=== PATIENT | female | born 1965 | race Caucasian/White ===

== ENCOUNTER 2020-06-14 23:42 | Inpatient (IN) | payer OTHER, SELFPAY ==
[~2020-06-14 23:42] MED LIST: Iopamidol-370 76% 500 ML 1 ML ONE
[2020-06-15] MEDS ORDERED: Calcium Carbonate 500 MG ChewTAB PO PRN (01:32)
[2020-06-15] MEDS ORDERED: Ondansetron PF 4 MG/2 ML Vial IVP PRN (01:32)
[2020-06-15] MEDS ORDERED: HYDROcodone/Acetaminophen 5/325 mg Tablet PO PRN (01:32)
[2020-06-15] MEDS ORDERED: Acetaminophen 650 MG Suppository PR PRN (01:32)
[2020-06-15] MEDS ORDERED: Ondansetron ODT 4 MG TAB PO PRN (01:32)
--- NOTE | 2020-06-15 01:42 | PDOC.HHP ---
Hospitalist HPI - History of Present Illness dyspnea History of Present Illness: Case of an 55y/o female with pmhx of morbid obesity and hypertension who comes to hospital due to dyspnea. Patient comes transfer from the [place] [facility], COVID-19 diagnosis was made around 8 days ago when she started with considerable cough. patient also complains of fever body aches, chills, sore throat, and diarrhea states her shortness of breath started about 4 days ago and got worse today. Patient denies any chest pain, abdominal pain, nausea or vomiting. at arrival patient was in respiratory distress with increase RR and saturation in the low 90s. Hospitalist ROS - Review of Systems All other systems reviewed; all pertinent +/- noted in HPI/Subj Hospitalist History - Past Medical History Source: patient - Past Surgical History Past Surgical History: reports: Cholecystectomy, Hysterectomy - Family History Family History: reports: hypertension - Social History Smoking Status: Former smoker Alcohol: reports: None Drugs: reports: none Living Situation: With Family - Exam General Appearance: awake alert Eye: PERRL, anicteric sclera ENT: normocephalic atraumatic, no oropharyngeal lesions Neck: supple, symmetric, no JVD Heart: RRR, no murmur, no gallops Respiratory: no wheezes, no rales, no ronchi, tachypneic Gastrointestinal: soft, non-tender, non-distended Extremities: no cyanosis, no clubbing Skin: normal turgor, no lesions Neurological: cranial nerve grossly intact, normal sensation to touch Musculoskeletal: normal tone, normal strength Psychiatric: normal affect, normal behavior, A&O x 3 Hospitalist Results - Labs Result Diagrams: 06/15/20 01:57 06/15/20 01:54 Hospitalist H&P A/P - Problem (1) COVID-19 Code(s): U07.1 - COVID-19 Status: Acute (2) Hypoxia Code(s): R09.02 - HYPOXEMIA Status: Acute (3) Morbid obesity Code(s): E66.01 - MORBID (SEVERE) OBESITY DUE TO EXCESS CALORIES Status: Acute (4) HTN (hypertension) Code(s): I10 - ESSENTIAL (PRIMARY) HYPERTENSION Status: Acute - Plan Plan: covid 19 / hypoxia - positive test - on rocephin + azithromycin prophylactically - dexamethazone 6mg iv daily x 10d - 02 supplementation goal 92% above - normal LA - ivfs htn - continue home meds
[2020-06-15] MEDS ORDERED: Azithromycin 500 MG in Sodium Chloride 0.9% 250 ML 250 ML IVPB SCH ×2 (02:00→05:00)
[2020-06-15 02:09] LABS: Troponin I 0.015 ng/mL (< 0.028)
[2020-06-15 02:13] LABS: Hemoglobin 13.9 g/dL (12.0-16.0); Mean Corpuscular HGB CONC 33.5 g/dL (32.0-36.0); Mean Corpuscular Hemoglobin 29.5 pg (27.0-31.0); Mean Corpuscular Volume 88.3 fL (78.0-98.0); Mean Platelet Volume 7.9 fL (7.4-10.4); Platelet Count 202 thou/uL (130-400); RBC Distribution Width 13.5 % (11.5-14.5); White Blood Cell (WBC) Count 4.4 thou/uL (4.8-10.8)
[2020-06-15 02:27] LABS: ALT (SGPT) 103 U/L (8-55); AST (SGOT) 158 U/L (5-34); Albumin 3.7 g/dL (3.5-5.0); Alkaline Phosphatase 174 U/L (40-110); Anion Gap 13 mmol/L (10-20); BUN (Urea Nitrogen) 12 mg/dL (9.8-20.1); Bilirubin, Total 0.5 mg/dL (0.2-1.2); Calc. Creatinine Clearance 0 mL/min (70-130); Calcium 7.6 mg/dL (7.8-10.44); Carbon Dioxide 23 mmol/L (22-29); Chloride 100 mmol/L (98-107); Estimated GFR-MDRD 49; Globulin 3.1 g/dL (2.4-3.5); Glucose 111 mg/dL (70-105); Potassium 4.2 mmol/L (3.5-5.1); Protein, Total 6.8 g/dL (6.0-8.3); Sodium 132 mmol/L (136-145)
[2020-06-15 02:31] LABS: MDiff Complete? YES
[2020-06-15 02:32] LABS: Band 22 % (5-11); Lymphocytes 24 % (21-51); Monocytes 4 % (0-10); Neutrophil 50 % (42-75); Platelet Morphology Comment Appears Adequate; RBC Morphology Normal
[2020-06-15] MEDS ORDERED: cefTRIAXone\\ROCEPHIN 1 GM in Sodium Chloride 0.9% 100 ML IVPB SCH (03:00)
[2020-06-15 04:53] VITALS: BMI 56.9
[2020-06-15] MEDS: Sodium Chloride 0.9% 1,000 ML IV SCH ×2 (05:00→22:32)
[2020-06-15 05:48] LABS: Troponin I 0.024 ng/mL (< 0.028)
--- NOTE | 2020-06-15 06:54 | CT ---
PRELIMINARY REPORT/[facility]/EMERGENCY AFTER HOURS PROCEDURE: EXAM: CTA Chest with Intravenous Contrast CLINICAL HISTORY: 55-year-old female patient was a transfer from the [facility] ER for shortness of breath, recent COVID-19 diagnosis. The patient reports she has, but body aches, chills, sore throat, diarrhea, for the last 8 days, reports her shortness of breath started a few days ago and will got worse today. Patient tashia es any chest pain, fever, abdominal pain, or other symptoms at this time. Patient was given IV fluids , Tylenol, Lovenox prior to arrival. TECHNIQUE: Axial CTA images of the chest with intravenous contrast. Three-dimensional MIP/volume rendered reform ations were performed. CONTRAST: With; 60ML ISOVUE 370 COMPARISON: None provided. FINDINGS: PULMONARY ARTERIES There is no intraluminal filling defect suspicious for PE. AORTA No thoracic aortic aneurysm or dissection. LUNGS Scattered groundglass densities throughout the lungs, worse in the lung peripheries. No pulmonary ma ss. No focal airspace consolidation. PLEURAL SPACES No pleural effusion. No pneumothorax. HEART AND MEDIASTINUM No cardiomegaly. No significant pericardial effusion. LYMPH NODES No lymphadenopathy. BONES No focal osseous abnormality or acute fracture. CHEST WALL AND UPPER ABDOMEN Images through the upper abdomen are unremarkable. The chest wall is unremarkable. IMPRESSION: Scattered ground glass densities throughout the lungs, worse in the lung peripheries concerning for a n infectious process and this may represent a Covid 19 infection. ELECTRONICALLY SIGNED BY: Vasyl Ulrich MD Jun 15, 2020 12:46:50 AM CDT This report is intended for review by the ordering physician only, in accordance of law. If you recei ve this report in error, please call [facility] at [phone]. FINAL REPORT EMERGENCY AFTER HOURS CTA CHEST: FINDINGS/IMPRESSION: I agree with the findings and impression given in the preliminary report per [facility] physici an. 1. No evidence of thromboembolism. 2. There is subtle peripheral opacity on the posterior aspect of both upper lobes. This may represen t atelectasis rather than an atypical infectious process. POS: EAA
[2020-06-15] MEDS: Dexamethasone 4 mg/ml Vial SLOW IVP SCH (09:01)
--- NOTE | 2020-06-15 14:18 | CON ---
DATE OF CONSULTATION: 06/15/2020 REASON FOR CONSULTATION: COVID pneumonia. HISTORY OF PRESENT ILLNESS: A 55-year-old with history of obesity and hypertension. She has a history of prior admission in 2017 for atypical chest pain. 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 Five days before admission, tested positive for COVID, and then because of worsening symptoms including dyspnea and diarrhea, she was admitted. Initial findings are BP 107/63, pulse 103, respirations 22, temperature 102.9, and O2 saturations were 91 on room air. On exam, the patient was no in no distress. The lung sounds were normal. She was tachycardic, but otherwise heart exam normal. Other findings included white cell count 4.4, hemoglobin 13 , and platelets 202 with 22% bands. Creatinine 1.14 with a baseline of 1.1. AST was 158, ALT 103, alkaline phosphatase 174, and bilirubin normal. Ferritin was 1700. CRP was 7.72 and repeat 6.43. Chest x-ray was not remarkable. CT of chest showed no evidence of pulmonary embolism, but evidence of ground-glass infiltrates in right and left lungs. Currently, she is lying in bed. REVIEW OF SYSTEMS: Ten-point review of systems remarkable for nausea. Breathing symptoms have improved. She is not vomiting. She has no diarrhea. No genitourinary symptoms or joint symptoms. PAST MEDICAL HISTORY: 1. Obesity. 2. Hypertension. 3. Episode of atypical chest pain, which led to admission and negative stress test in 2017. 4. She has a cholecystectomy. 5. Hysterectomy. FAMILY HISTORY: Hypertension. SOCIAL HISTORY: Quit smoking 3 years before. She lives with a boyfriend in the area. 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 MEDICATION LIST: 1. [place]. 2. Azithromycin. 3. Ceftriaxone. 4. Decadron. 5. Enoxaparin daily. 6. Ondansetron. PHYSICAL EXAMINATION: VITAL SIGNS: She has been afebrile and O2 sats started at 97 and went down to 89 and her supplementation was at 2.5 and now it is at 2 L/minute. SKIN: Normal. There is no lymphadenopathy. HEENT: Ocular movements conjugate. Oral cavity normal. NECK: Supple. LUNGS: Symmetric, clear breath sounds. HEART: S1 and S2. Regular rate. No S3 or S4. ABDOMEN: Soft, not distended or tender. No ascites. No bladder distention. EXTREMITIES: No joint inflammatory activity. Pulses are 1+ in dorsalis pedis. Plantar responses are flexor. No clonus. Motility of upper and lower extremities is preserved. NEUROLOGIC: Cognitive function is intact. She is able to speak in full sentences. LABORATORY DATA: Her labs have been reviewed above as well as the imaging studies. ASSESSMENT: 1. COVID pneumonia. 2. Moderate obesity. 3. Hypertension. DISCUSSION: She is not eligible for Remdesivir and continue Decadron. Discontinue antimicrobial therapy. I do not think she needs convalescent plasma at this point in time. Hopefully, we will have a benign clinical course with Decadron. Continue with inflammatory markers and D-dimer every other day. Job ID: [id number] [facility]ILL[facility]IDE HOSPITALMartín
[2020-06-15] MEDS: Enoxaparin Sodium 40 MG/0.4 ML SYRINGE SC SCH (22:31)
[2020-06-15] MEDS: Acetaminophen 325 MG TAB PO PRN (22:31)
[2020-06-16] MEDS: Acetaminophen 325 MG TAB PO PRN (06:24)
[2020-06-16] MEDS: Dexamethasone 4 mg/ml Vial SLOW IVP SCH (08:34)
[2020-06-16 09:58] LABS: #Lymphocytes 0.7 thou/uL (1.20-3.40); #Monocytes 0.6 thou/uL (0.11-0.59); #Neutrophils 6.4 thou/uL (1.40-6.50); %Eosinophils 0.2 % (0.0-10.0); %Lymphocytes 9.5 % (21.0-51.0); %Monocytes 7.4 % (0.0-10.0); Hemoglobin 13.6 g/dL (12.0-16.0); Mean Corpuscular HGB CONC 33.6 g/dL (32.0-36.0); Mean Corpuscular Hemoglobin 29.9 pg (27.0-31.0); Mean Corpuscular Volume 88.9 fL (78.0-98.0); Mean Platelet Volume 7.9 fL (7.4-10.4); Platelet Count 279 thou/uL (130-400); RBC Distribution Width 13.5 % (11.5-14.5); Red Blood Cell (RBC) Count 4.55 mill/uL (4.20-5.40); White Blood Cell (WBC) Count 7.7 thou/uL (4.8-10.8)
[2020-06-16 10:00] LABS: Anion Gap 14 mmol/L (10-20); BUN (Urea Nitrogen) 11 mg/dL (9.8-20.1); Calc. Creatinine Clearance 141 mL/min (70-130); Calcium 8.1 mg/dL (7.8-10.44); Carbon Dioxide 22 mmol/L (22-29); Chloride 107 mmol/L (98-107); Estimated GFR-MDRD 55; Glucose 116 mg/dL (70-105); Potassium 4.4 mmol/L (3.5-5.1); Sodium 139 mmol/L (136-145)
--- NOTE | 2020-06-16 14:34 | PDOC.HOSPP ---
- Subjective Encounter Date: 06/16/20 Encounter Time: 14:32 Subjective: Patient feeling well. Continues to feel short of breath but it is better than it was yesterday. Has been tolerating oral intake. Reports having a "scare" with lunch because she forgot to mention she had a fish allergy and received seafood. She did not ingest any of it but it caused her to have an anxiety. Reports her BP was low prior to that and since then BP has been in the 130s. Denies any n/v. No abdo pain. Afebrile. Seen by Dr. Guerrier who advised to continue with steroids only. No indication for antibiotics. - Objective Vital Signs & Weight: Vital Signs (12 hours) Temp Pulse Resp BP Pulse Ox 06/16/20 12:42 85 25 H 134/82 95 06/16/20 09:46 98.2 F 76 16 91/62 94 L 06/16/20 08:20 94 L Weight Weight 321 lb 3.416 oz I&O: 06/15/20 06/16/20 06/17/20 06:59 06:59 06:59 Intake Total 510 3090 Output Total 400 2400 Balance 110 690 Result Diagrams: 06/16/20 09:26 06/16/20 09:26 Radiology Reviewed by me: Yes EKG Reviewed by me: Yes Hospitalist ROS - Review of Systems Constitutional: reports: malaise (feeling better than yesterday). denies: fever , chills, sweats, weakness, other Eyes: denies: pain, vision change, conjunctivae inflammation, eyelid inflammation, redness, other ENT: denies: ear pain, ear discharge, nose pain, nose discharge, nose congestion , mouth pain, mouth swelling, throat pain, throat swelling, other Respiratory: reports: cough (occasional), shortness of breath (improving) Cardiovascular: denies: chest pain, palpitations, orthopnea, paroxysmal noc. dyspnea, edema, light headedness, other Gastrointestinal: denies: nausea, vomiting, abdominal pain, diarrhea, constipation, melena, hematochezia, other Genitourinary: denies: dysuria, frequency, incontinence, hematuria, retention, other Musculoskeletal: denies: neck pain, shoulder pain, arm pain, back pain, hand pain, leg pain, foot pain, other Skin: denies: rash, lesions, sofie, bruising, other Neurological: denies: weakness, numbness, incoordination, change in speech, confusion, seizures, other - Medication Medications: Active Medications Generic Name Dose Route Start Last Admin Trade Name Freq PRN Reason Stop Dose Admin Acetaminophen 650 mg 06/15/20 01:32 06/16/20 06:24 Tylenol PO 650 mg Q4H PRN Administration Headache/Fever/Mild Pain (1-3) Dexamethasone 6 mg 06/15/20 09:00 06/16/20 08:34 Decadron SLOW IVP 6 mg DAILY STEFAN Administration Enoxaparin Sodium 40 mg 06/15/20 21:00 06/15/20 22:31 Lovenox SC 40 mg 2100 STEFAN Administration Sodium Chloride 1,000 mls @ 50 mls/hr 06/15/20 01:45 06/15/20 22:32 Normal Saline 0.9% IV 1,000 mls .Q20H STEFAN Administration Ondansetron HCl 4 mg 06/15/20 01:32 06/15/20 22:31 Zofran Odt PO 4 mg Q6H PRN Administration Nausea/Vomiting Ondansetron HCl 4 mg 06/15/20 01:32 06/15/20 09:01 Zofran IVP 4 mg Q6H PRN Administration Nausea/Vomiting - Exam General Appearance: NAD Eye: PERRL, anicteric sclera ENT: normocephalic atraumatic Neck: supple, no lymphadenopathy Heart: RRR, normal peripheral pulses Respiratory: CTAB, no wheezes, no rales, no ronchi, normal chest expansion Gastrointestinal: soft, non-tender, non-distended, normal bowel sounds Extremities: no edema Skin: normal turgor, no lesions, no rashes Neurological: cranial nerve grossly intact, normal sensation to touch, no weakness Musculoskeletal: normal tone, normal strength, no muscle wasting Psychiatric: normal affect, normal behavior, A&O x 3 Hosp A/P (1) COVID-19 Code(s): U07.1 - COVID-19 Status: Acute (2) Hypoxia Code(s): R09.02 - HYPOXEMIA Status: Acute (3) HTN (hypertension) Code(s): I10 - ESSENTIAL (PRIMARY) HYPERTENSION Status: Chronic (4) Morbid obesity Code(s): E66.01 - MORBID (SEVERE) OBESITY DUE TO EXCESS CALORIES Status: Chronic - Plan Continue decadron only as per Dr. Guerrier. Monitor glucose given steroids. Continue to monitor BP and O2 sats. PT consult.
[2020-06-16] MEDS: Sodium Chloride 0.9% 1,000 ML IV SCH ×2 (17:14→20:45)
[2020-06-16] MEDS: Enoxaparin Sodium 40 MG/0.4 ML SYRINGE SC SCH (20:43)
[2020-06-17 06:35] LABS: #Monocytes 0.5 thou/uL (0.11-0.59); #Neutrophils 8.9 thou/uL (1.40-6.50); %Lymphocytes 9.4 % (21.0-51.0); %Neutrophils 85.6 % (42.0-75.0); Hemoglobin 13.1 g/dL (12.0-16.0); Mean Corpuscular HGB CONC 32.4 g/dL (32.0-36.0); Mean Corpuscular Hemoglobin 28.7 pg (27.0-31.0); Mean Corpuscular Volume 88.7 fL (78.0-98.0); Platelet Count 315 thou/uL (130-400); RBC Distribution Width 13.6 % (11.5-14.5); Red Blood Cell (RBC) Count 4.55 mill/uL (4.20-5.40); White Blood Cell (WBC) Count 10.4 thou/uL (4.8-10.8)
[2020-06-17 06:52] LABS: Anion Gap 12 mmol/L (10-20); BUN (Urea Nitrogen) 12 mg/dL (9.8-20.1); CRP (Inflammatory) 3.23 mg/dL (= or < 0.5); Calc. Creatinine Clearance 164 mL/min (70-130); Calcium 8.3 mg/dL (7.8-10.44); Carbon Dioxide 24 mmol/L (22-29); Chloride 107 mmol/L (98-107); Estimated GFR-MDRD 66; Glucose 109 mg/dL (70-105); Potassium 4.4 mmol/L (3.5-5.1); Sodium 139 mmol/L (136-145)
[2020-06-17] MEDS: Dexamethasone 4 mg/ml Vial SLOW IVP SCH (08:07)
[2020-06-17] MEDS: Lisinopril 5 MG TAB PO SCH ×2 (11:53→12:44)
[2020-06-17] MEDS: Sodium Chloride 0.9% 1,000 ML IV SCH (11:53)
--- NOTE | 2020-06-17 13:24 | PRG ---
DATE OF SERVICE: 06/17/2020 SUBJECTIVE: The patient still with some dyspnea, but not as much as before. Coughing is less. No chest pain or abdominal pain. No diarrhea. OBJECTIVE: VITAL SIGNS: Temperature max 98.5, BP 112/65, pulse 78, respirations 18, and O2 sats ranged from 92 to 96 on 2 L, which is similar as before. LUNGS: With symmetric air entry. HEART: S1 and S2, regular rate. ABDOMEN: Soft, not distended. No abdominal tenderness. NEURO: Nonfocal. LABORATORY DATA: Ferritin is down to 857. CRP is down to 3.23 and D-dimer has not been repeated. Currently, she is on Decadron. ASSESSMENT AND DISCUSSION: Obesity, hypertension, and severe COVID pneumonia with some improvement in inflammatory markers. Still the oxygen requirements remain fairly similar to what she started with. We will continue current measures. Job ID: [id number]
--- NOTE | 2020-06-17 17:37 | PDOC.HOSPP ---
- Subjective Encounter Date: 06/17/20 Encounter Time: 10:00 Subjective: no overnight events. this morning, feeling better and breathing better. Noticed improvement in cough 2 days ago. afebrile throughout inpatient stay. inflammatory markers down. - Objective Vital Signs & Weight: Vital Signs (12 hours) Temp Pulse Resp BP Pulse Ox 06/17/20 16:00 98.1 F 60 18 100/65 93 L 06/17/20 12:44 76 06/17/20 12:00 98.5 F 78 18 112/65 94 L 06/17/20 08:00 98.1 F 76 20 113/75 92 L 06/17/20 05:38 96 Weight Weight 321 lb 3.416 oz I&O: 06/16/20 06/17/20 06/18/20 06:59 06:59 06:59 Intake Total 3090 800 Output Total 2400 1500 2100 Balance 690 -700 -2100 Result Diagrams: 06/17/20 05:52 06/17/20 05:52 Hospitalist ROS - Review of Systems Constitutional: denies: fever, chills, sweats, weakness, malaise, other Respiratory: reports: cough, dry, shortness of breath. denies: hemoptysis, SOB with excertion, pleuritic pain, sputum, wheezing, other Cardiovascular: denies: chest pain, palpitations, orthopnea, paroxysmal noc. dyspnea, edema Gastrointestinal: denies: nausea, vomiting, abdominal pain, diarrhea Genitourinary: denies: dysuria, frequency, incontinence, hematuria - Medication Medications: Active Medications Generic Name Dose Route Start Last Admin Trade Name Freq PRN Reason Stop Dose Admin Acetaminophen 650 mg 06/15/20 01:32 06/16/20 06:24 Tylenol PO 650 mg Q4H PRN Administration Headache/Fever/Mild Pain (1-3) Dexamethasone 6 mg 06/15/20 09:00 06/17/20 08:07 Decadron SLOW IVP 6 mg DAILY STEFAN Administration Enoxaparin Sodium 40 mg 06/15/20 21:00 06/16/20 20:43 Lovenox SC 40 mg 2100 STEFAN Administration Sodium Chloride 1,000 mls @ 50 mls/hr 06/15/20 01:45 06/17/20 11:53 Normal Saline 0.9% IV 1,000 mls .Q20H STEFAN Administration Ondansetron HCl 4 mg 06/15/20 01:32 06/15/20 22:31 Zofran Odt PO 4 mg Q6H PRN Administration Nausea/Vomiting Ondansetron HCl 4 mg 06/15/20 01:32 06/15/20 09:01 Zofran IVP 4 mg Q6H PRN Administration Nausea/Vomiting - Exam General Appearance: NAD, awake alert Neck: no JVD Heart: RRR, no murmur, no gallops, no rubs Respiratory: CTAB, no wheezes, no rales, no ronchi Gastrointestinal: soft, non-tender, non-distended, normal bowel sounds Extremities: no edema Psychiatric: normal affect, normal behavior, A&O x 3 Hosp A/P - Plan * covid pneumonia * clinically improving; inflammatory markers down * * continue decadron * HTN * restarted lisinopril; not contraindicated in COVID patients who were taking it before covid * disposition * ELOS 2 nights
[2020-06-17] MEDS: Enoxaparin Sodium 40 MG/0.4 ML SYRINGE SC SCH (20:59)
[2020-06-18] MEDS: Dexamethasone 4 mg/ml Vial SLOW IVP SCH (07:51)
[2020-06-18] MEDS: Lisinopril 5 MG TAB PO SCH ×2 (07:52→10:04)
[2020-06-18] MEDS: Sodium Chloride 0.9% 1,000 ML IV SCH (07:53)
[2020-06-18 09:23] VITALS: TEMP 97.9
[2020-06-18 13:08] VITALS: BP 101/63
--- NOTE | 2020-06-19 00:49 | DIS ---
DATE OF ADMISSION: 06/15/2020 DATE OF DISCHARGE: 06/18/2020 HOSPITAL COURSE: Ms. Fragoso is a 55-year-old female with a medical history of hypertension. She presents with dyspnea. She was diagnosed with COVID-19 pneumonia. Infectious Disease was consulted and the patient was started on Decadron and improved promptly afterwards. She remained afebrile throughout her inpatient stay. She was discharged and was educated to remain in isolation for four more days based on clinical criteria. Decadron was continued for several additional days pending appointment with primary care physician. PHYSICAL EXAMINATION: VITAL SIGNS: Blood pressure 101/63, pulse is 54, respiratory rate 18, oxygen saturation 95% on room air, and temperature 97.9 Fahrenheit. GENERAL: Lying comfortably in bed, in no apparent distress. Morbidly obese. HEENT: Normocephalic and atraumatic. PERRL. EOMI. NECK: No periauricular, submandibular, posterior or anterior neck lymphadenopathy. CARDIAC: Regular rate and regular rhythm, mildly bradycardic. No murmurs, gallops, or rubs. LUNGS: Clear to auscultation bilaterally. No wheezing, rales, or rhonchi. ABDOMEN: Soft, nontender, and nondistended. Normal bowel sounds. EXTREMITIES: No edema. PSYCHIATRIC: Proper mood and affect. Alert and oriented x3. MEDICATION LIST: New medications, dexamethasone 6 mg p.o. daily for seven more days. Discontinue medications, lisinopril was discontinued due to borderline hypotension. The patient was requested to reassess restarting lisinopril with her primary care physician. Modified medications, no modified medications. Job ID: [id number]
--- NOTE | 2020-06-20 06:59 | PQF ---
CLINICAL DOCUMENTATION CLARIFICATION FORM: Dear : Davy Monte Date / Time: 06/20/20 06 Please exercise your independent, professional judgment in responding to the clarification form. Clinical indicators are provided on the bottom of this form for your review Please check appropriate box(es): [ ] Sepsis due to Covid Pneumonia [ x ] Localized infection without sepsis [ ] Other diagnosis [ ] Unable to determine In addition, please specify: Present on Admission (POA): [x ] Yes [ ] No [ ] Unable to determine Physician Signature: Date/Time: For continuity of documentation, please document condition throughout progress notes and discharge summary. Thank You. To be completed by CDI/Coding staff for physician review: Present Clinical Indicators - Signs / Symptoms / Labs Results and Location in Medical Record [ X] BP 102/69, Pulse 110, Resp 24, Temp 98.8 Vital signs 06/15 [ X] WBC 4.4, Band 22, Plt count 202, neutrophils 50 Laboratory Hematology 06/15 [ X] Blood culture: No growth at 48 hrs Microbiology 06/15 [ X] Covid PNA H&P p2 06/15 Dr Hong [ X] Hypoxia H&P p2 06/15 Dr Hong [ X] Chest Xray: scattered ground glass densities throughout the lungs Chest Xray 06/15 Present Risk Factors Results and Location in Medical Record [ X] Morbid Obesity H&P p1 06/15 Dr Hong [ X] HTN H&P p1 06/15 Dr Hong [ X] Former smoker H&P p1 06/15 Dr Hong [ X] Covid PNA H&P p2 06/15 Dr Hong Present Treatments Results and Location in Medical Record [ X] IV Azithromycin 500 mg FEB 04 [ X] IV Ceftriazone 1 gm FEB 04 [ X] IVF NS 1L FEB 04 [ X] Blood culture Microbiology 06/15 [ X] ID consult Nirav Neville 06/15 [ X] Isolation Ordered Dr Hong 06/15 [ X] Chest X-ray Imaging Dr Downing 06/15 [ X] Oxygen via [facility] 06/15 [facility]/[employer] Signature: Daphne Saunders Phone #: [phone] Date/Time: 06/20/20 0658 This is a permanent part of the Medical Record [facility]
== END 2020-06-18 16:31 | disposition home or self-care (01) | DRG 177 ==
LOC: ERS 23:42 → T4-A 06-15 01:15 → OBSVTOIN 06-15 01:15 → T4-A 06-15 04:06
PROVIDERS: ADMIT Internal Medicine; ATTEND Internal Medicine
PROC: 8E0ZXY6 Isolation (ICD-10-PCS; principal; 2020-06-15)
DX: U07.1 COVID-19 (principal); J12.89 Other viral pneumonia; Z68.43 Body mass index [BMI] 50.0-59.9, adult; E03.9 Hypothyroidism, unspecified; I10 Essential (primary) hypertension; E66.01 Morbid (severe) obesity due to excess calories; Z88.2 Allergy status to sulfonamides; Z79.899 Other long term (current) drug therapy; Z90.710 Acquired absence of both cervix and uterus; Z98.51 Tubal ligation status; Z87.891 Personal history of nicotine dependence
CPT/HCPCS: 36415; 71275; 80048; 80053; 82728; 83880; 84145; 84484; 85007; 85025; 85027; 85379; 86140; 87040; 93005; 96365; 96375; G0378; J0456; J0696; J1100; J1650; J2405; J3490; J7050; Q0162; Q9967